=== PATIENT | male | born 1965 | race Caucasian/White ===

== ENCOUNTER 2020-05-30 08:56 | Inpatient (IN) ==
--- NOTE | 2020-04-24 15:15 | PAT Medication Instructions ---
Medication Instructions Date of Service April 24, 2020 Home Medications Sulcrafate 1 g PO QID aspirin [Baby Aspirin] 81 mg PO QAM atorvastatin 80 mg PO PM cetirizine [Zyrtec] 10 mg PO PM dicyclomine 10 mg PO QID divalproex 1,000 mg PO PM folic acid 0.8 mg PO QAM gabapentin 800 mg PO BID hydrochlorothiazide 25 mg PO QAM lisinopril 10 mg PO QAM loperamide [Imodium] 1 mg PO PM melatonin 10 mg PO HS PRN omeprazole 20 mg PO QAM DO NOT take the morning of surgery Sulcrafate 1 g PO QID dicyclomine 10 mg PO QID folic acid 0.8 mg PO QAM hydrochlorothiazide 25 mg PO QAM lisinopril 10 mg PO QAM Take morning of surgery With a small sip of water, OTHERWISE NOTHING TO EAT OR DRINK AFTER MIDNIGHT: aspirin [Baby Aspirin] 81 mg PO QAM gabapentin 800 mg PO BID omeprazole 20 mg PO QAM Take evening before surgery Sulcrafate 1 g PO QID atorvastatin 80 mg PO PM cetirizine [Zyrtec] 10 mg PO PM dicyclomine 10 mg PO QID divalproex 1,000 mg PO PM gabapentin 800 mg PO BID loperamide [Imodium] 1 mg PO PM melatonin 10 mg PO HS PRN Other Notes If you have any questions please call us at [phone] or [phone] or [phone] or [phone]
--- NOTE | 2020-04-26 16:01 | Anesthesiology Consultation ---
Date of Service April 26, 2020 Assessment & Plan (1) Encounter for pre-operative examination: - Per assessment on 04/26: Travel screen negative. No known COVID-19 positive contacts or current COVID-19 related symptoms. Patient had preop COVID testing 04/26 ([facility]). Awaiting results. - ETOH use: 5-6 beers/day at most, denies AM ETOH use. - ASA instructions: okay to continue as directed perioperatively. - Hx CVA: Patient has paperwork from neurologist stating perioperative recommendations as "Maintain mean arterial pressure (MAP) above awake baseline MAP (do not allow any sustained decrease in MAP). General vs. SAB reviewed with patient. OR made aware of possible Awaiting formal surgeon-ordered neurology clearance (Piper Willams) as well as most recent carotid imaging. - Awaiting surgeon-ordered PCP clearance (Dr. Lubin). Chart Review Chart Review: Patient seen in Pre Admission Testing Teaching & Discussion Pre-Anesthesia Teaching/Discussion Notes: Instructed NPO after midnight before surgery,except medications with 15 cc of water. Medication instructions provided according to the PAT guidelines. History Surgery Operation Date: 05/02/20 10:05 Proposed Procedures p Left Anterior Total Hip Arthroplasty - Asaf Calvillo DO Height/Weight Height: 6 ft 2 in Weight: 75.5 kg Allergies Allergy/AdvReac Type Severity Reaction Status Date / Time z pack Allergy Uncoded 04/17/20 13:47 Medications Home Medications Medication Instructions Recorded Confirmed Last Taken Sulcrafate 1 g PO QID 04/17/20 04/17/20 Unknown aspirin [Baby Aspirin] 81 mg PO QAM 04/17/20 04/17/20 Unknown atorvastatin 80 mg PO PM 04/17/20 04/17/20 Unknown cetirizine [Zyrtec] 10 mg PO PM 04/17/20 04/17/20 Unknown dicyclomine 10 mg PO QID 04/17/20 04/17/20 Unknown divalproex 1,000 mg PO PM 04/17/20 04/17/20 Unknown folic acid 0.8 mg PO QAM 04/17/20 04/17/20 Unknown gabapentin 800 mg PO BID 04/17/20 04/17/20 Unknown hydrochlorothiazide 25 mg PO QAM 04/17/20 04/17/20 Unknown lisinopril 10 mg PO QAM 04/17/20 04/17/20 Unknown loperamide [Imodium] 1 mg PO PM 04/17/20 04/17/20 Unknown melatonin 10 mg PO HS PRN 04/17/20 04/17/20 Unknown omeprazole 20 mg PO QAM 04/17/20 04/17/20 Unknown Past Medical History Medical History Carotid artery disease under surveillance by neurology, determined not surgical candidate per patient, recommended medical management CVA (cerebral vascular accident) CVA found 3 locations on imaging (2018), mild residual brain fog Depression GERD (gastroesophageal reflux disease) HTN (hypertension) IBS (irritable bowel syndrome) Migraine Post traumatic stress disorder from back injury Seizure in childhood Exercise / Class Metabolic Activity II 4-5 Yardwork/Stairs/Walk up hill Past Surgical History Surgical History History of colonoscopy History of nasal septoplasty Past Anesthesia History No Hx of Anesthesia Complications and No Family Hx of Anesthesia Complications History of PONV No Hx of PONV and Hx of Motion Sickness Social History Smoking Status: Former smoker Do You Dip or Chew Tobacco: No Smoking End Date: Quit 2 years ago, hx tobacco use x 10-12 years Hx Alcohol Use: Yes Alcohol type: beer alcohol intake frequency: 3 or more drinks per day (5-6 beers/day at most) Hx Substance Use: No substance use type: does not use Review of Systems Patient denies chest pain, shortness of breath, dyspnea on exertion, fever, chills, cough, wheezing, palpitations. Physical Exam Vital Signs VITALS BP 124/65 P 72 TEMP 98.2 SP02 100%RA RESP 16 PHYSICAL Full neck and c-spine range of motion. Full TMJ range of motion. TMD 3 finger breaths Mallampati Score 3 Dentition: missing molars Lungs: clear throughout to auscultation Cardiac: regular rate and rhythm, no murmurs noted Spine: normal Carotid arteries: + right carotid bruit Extremities: no edema Testing Laboratory Results 04/26/20 16:04 04/26/20 16:04 PT 10.7 Seconds (9.0-12.0) 04/26/20 16:04 INR 1.0 (0.9-1.1) 04/26/20 16:04 APTT 24.8 Seconds (21.0-31.0) 04/26/20 16:04 Hemoglobin A1c 5.6 % (4.5-5.6) 04/26/20 16:04 Urine Color Yellow 04/26/20 16:04 Urine Appearance Clear (Clear) 04/26/20 16:04 Urine pH 7.5 (4.5-7.5) 04/26/20 16:04 Ur Specific [place] 1.015 (1.000-1.030) 04/26/20 16:04 Urine Protein Negative (Negative) 04/26/20 16:04 Urine Glucose (UA) Negative (Negative) 04/26/20 16:04 Urine Ketones 1+ (Negative) H 04/26/20 16:04 Urine Nitrite Negative (Negative) 04/26/20 16:04 Ur Leukocyte Esterase Negative (Negative) 04/26/20 16:04 Blood Type B Positive 04/26/20 16:04 Antibody Screen NEGATIVE 04/26/20 16:04 Electrocardiogram Date: 04/26/20 NSR at 70bpm. Rightward axis. unconfirmed report. Chest X-Ray Date: 04/26/20 FINDINGS: PA and lateral chest radiographs are obtained. No prior studies are available for comparison at the time of dictation. The cardiomediastinal silhouette is unremarkable. The lungs and pleural spaces are clear. There is no pneumothorax. The bony thorax appears intact. IMPRESSION: No active disease in the chest.
--- NOTE | 2020-04-26 16:38 | XRay Report ---
TWO VIEW CHEST CLINICAL HISTORY: Preoperative examination. FINDINGS: PA and lateral chest radiographs are obtained. No prior studies are available for compariso n at the time of dictation. The cardiomediastinal silhouette is unremarkable. The lungs and pleural spaces are clear. There is no pneumothorax. The bony thorax appears intact. IMPRESSION: No active disease in the chest. ACT 112: Negative or not required by law. Electronically signed by: Oswaldo Godoy M.D. 04/26/2020 4:37 PM
[2020-04-26 16:40] LABS: Basophils # (auto) 0.03 K/uL (0-0.2); Basophils % (auto) 0.5 %; Eosinophils # (auto) 0.18 K/uL (0-0.5); Eosinophils % (auto) 2.9 %; Hematocrit (blood only) 41.7 % (42-52); Hemoglobin 13.7 g/dL (14.0-18.0); Immature Granulocytes # (auto) 0.01 K/uL (0.00-0.02); Immature Granulocytes % (auto) 0.2 %; Lymphocytes # (auto) 1.78 K/uL (1.2-3.4); Lymphocytes % (auto) 28.3 %; Mean Corpuscular Hemoglobin 33.4 pg (25-34); Mean Corpuscular Hgb Conc 32.9 g/dL (32-36); Mean Corpuscular Volume 101.7 fL (80-100); Monocytes # (auto) 0.52 K/uL (0.11-0.59); Monocytes % (auto) 8.3 %; Neutrophils # (auto) 3.77 K/uL (1.4-6.5); Neutrophils % (auto) 59.8 %; Platelet Count 173 K/uL (130-400); RDW Coefficient of Variation 12.4 % (11.5-14.5); RDW Standard Deviation 46.2 fL (36.4-46.3); White Blood Count 6.29 K/uL (4.8-10.8)
[2020-04-26 16:46] LABS: Appearance Urine Clear (Clear); Bilirubin Urine Negative (Negative); Blood Urine Negative (Negative); Color Urine Yellow; Glucose Urine UA Negative (Negative); Ketones Urine 1+ (Negative); Leukocyte Esterase Urine Negative (Negative); Nitrite Urine Negative (Negative); Protein Urine Negative (Negative); Specific Gravity Urine 1.015 (1.000-1.030); Urobilinogen Urine Negative (Negative); pH Urine 7.5 (4.5-7.5)
[2020-04-26 16:51] LABS: Albumin Level 3.8 gm/dl (3.4-5.0); BUN Creatinine Ratio 8.8 (10-20); Calcium 10.1 mg/dl (8.5-10.1); Creatinine Clr Calc Pharmacy 83.1 ml/min; Est GFR (Non-African American) 75.9; Potassium 3.9 mmol/L (3.5-5.1)
[2020-04-26 16:54] LABS: Partial Thromboplastin Ratio 0.9; Partial Thromboplastin Time 24.8 Seconds (21.0-31.0); Prothrombin Time 10.7 Seconds (9.0-12.0)
[2020-04-27 05:57] LABS: Estimated Average Glucose 114 mg/dl; Hemoglobin A1C 5.6 % (4.5-5.6)
--- NOTE | 2020-04-27 17:38 | Electrocardiogram Report ---
Test Reason : Blood Pressure : / mmHG Vent. Rate : 070 BPM Atrial Rate : 070 BPM P-R Int : 124 ms QRS Dur : 080 ms QT Int : 386 ms P-R-T Axes : 062 091 080 degrees QTc Int : 416 ms Normal sinus rhythm Rightward axis Borderline ECG No previous ECGs available Confirmed by Jermaine Whittaker ([id number]) on 04/27/2020 5:38:07 PM Referred By: Asaf Calvillo Confirmed By:Heriberto Whittaker
--- NOTE | 2020-04-30 19:26 | History & Physical Report ---
Date of Service May 02, 2020 Assessment & Plan (1) Degenerative joint disease of left hip: I have indicated the patient for left anterior total hip replacement. The risks, benefits and complications of surgery were explained to the patient which include but not limited to infection, acute blood loss, DVT/PE, injury to nerves, vessels, bone, soft tissue, arthrofibrosis, chronic pain, failure of the prosthesis, hip dislocation, leg length discrepancy, need for additional surgery, cardiac and pulmonary events and . The patient wished to proceed with surgery and informed consent was obtained at this time. We will plan for 81mg ASA BID post-operatively for DVT prophylaxis. Upon discharge the patient will be discharged home with home health services. Appropriate clearances by PCP, neurology were obtained. History of Present Illness Chief Complaint: Left hip pain/DJD/AVN Primary Care Provider: Kamar Lubin MD The patient is a 54 year old male who presents with complaints of severe left hip pain and DJD. The patient has failed outpatient conservative treatments to this point which included NSAIDs, home exercise/walking program. Patient declined further conservative treatments included IA corticosteroid injection. The patient's pain and limited function have progressed to the point where they severely hinder their activities of daily living and they no longer tolerate exercise programs. They are requesting to proceed with total hip replacement surgery. Allergies Allergy/AdvReac Type Severity Reaction Status Date / Time azithromycin Allergy Unknown Verified 04/29/20 18:53 Home Medications Home Medications Medication Instructions Recorded Confirmed Type Sulcrafate 1 g PO QID 04/17/20 04/17/20 History aspirin [Baby Aspirin] 81 mg PO QAM 04/17/20 04/17/20 History atorvastatin 80 mg PO PM 04/17/20 04/17/20 History cetirizine [Zyrtec] 10 mg PO PM 04/17/20 04/17/20 History dicyclomine 10 mg PO QID 04/17/20 04/17/20 History divalproex 1,000 mg PO PM 04/17/20 04/17/20 History folic acid 0.8 mg PO QAM 04/17/20 04/17/20 History gabapentin 800 mg PO BID 04/17/20 04/17/20 History hydrochlorothiazide 25 mg PO QAM 04/17/20 04/17/20 History lisinopril 10 mg PO QAM 04/17/20 04/17/20 History loperamide [Imodium] 1 mg PO PM 04/17/20 04/17/20 History melatonin 10 mg PO HS PRN 04/17/20 04/17/20 History omeprazole 20 mg PO QAM 04/17/20 04/17/20 History zonisamide 25 mg PO HS 04/27/20 04/27/20 History Past Med/Surg History Medical History Carotid artery disease under surveillance by neurology, determined not surgical candidate per patient, recommended medical management CVA (cerebral vascular accident) CVA found 3 locations on imaging (2018), mild residual brain fog Depression GERD (gastroesophageal reflux disease) HTN (hypertension) IBS (irritable bowel syndrome) Migraine Post traumatic stress disorder from back injury Seizure in childhood Surgical History History of colonoscopy History of nasal septoplasty Social History Smoking Status: Former smoker Smoking End Date: Quit 2 years ago, hx tobacco use x 10-12 years; Second Hand Exposure: No; Do You Dip or Chew Tobacco: No; Hx Alcohol Use: Yes Alcohol type: beer Hx Substance Use: No Preferred Language: Kyrgyz Communication Ability: Effective Beliefs That Will Affect Care: None Current Living Situation: Alone Feels Safe at Home: Yes Safety Concerns: Feels Safe At This Time Assistive Devices: None Review of Systems Review of Systems: All systems reviewed & are unremarkable except as noted in HPI & below Constitutional: as per Subjective / HPI Physical Exam Physical Exam: LLE NVSI +EHL/FHL/TA/GS SILT grossly, +2 DP pulse, compartments soft NT, limited painful ROM of the hip, antalgic gait. Constitutional: WD/WN, vitals as above Eyes: PERRL, conjunctivae normal, anicteric sclerae ENMT: external ear and nose normal, oropharynx normal Neck: trachea midline, no thyromegaly Respiratory: normal respiratory effort, lungs clear to auscultation Cardiovascular: RRR, no murmur, no edema Gastrointestinal (Abdomen): normal bowel sounds, soft, nontender, no hepatosplenomegaly Musculoskeletal: no cyanosis or clubbing, extremities motor strength 5/5 Skin: no rashes, warm and dry Neurologic: patellar DTR's 2+ bilat, sensation intact Psychiatric: A+Ox3, euthymic affect Lymphatic: no cervical or axillary lymphadenopathy Results & Data Results & Data ([facility]) Diagnostic Findings Multiple views of the hip demonstrates severe AVN and DJD involving the femoral head. +osteophytes, +sclerosis and cortical irregularity. MRI of the left hip demonstrates severe AVN of the femoral head with cortical collapse. Pre Admission Testing Addendum Laboratory Results 04/26/20 16:04 04/26/20 16:04 PT 10.7 Seconds (9.0-12.0) 04/26/20 16:04 INR 1.0 (0.9-1.1) 04/26/20 16:04 APTT 24.8 Seconds (21.0-31.0) 04/26/20 16:04 Hemoglobin A1c 5.6 % (4.5-5.6) 04/26/20 16:04 Urine Color Yellow 04/26/20 16:04 Urine Appearance Clear (Clear) 04/26/20 16:04 Urine pH 7.5 (4.5-7.5) 04/26/20 16:04 Ur Specific [place] 1.015 (1.000-1.030) 04/26/20 16:04 Urine Protein Negative (Negative) 04/26/20 16:04 Urine Glucose (UA) Negative (Negative) 04/26/20 16:04 Urine Ketones 1+ (Negative) H 04/26/20 16:04 Urine Nitrite Negative (Negative) 04/26/20 16:04 Ur Leukocyte Esterase Negative (Negative) 04/26/20 16:04 Blood Type B Positive 04/26/20 16:04 Antibody Screen NEGATIVE 04/26/20 16:04 04/26/20 16:04 Urine Culture - Final Urine,Clean Catch No growth - less than 1,000 colonies/mL.
[~2020-05-30 08:56] MED LIST: ACETAMINOPHEN 500 MG TAB PO SCH; BUPIVACAINE 0.5 % 5 MG/1 ML PF 10ML VIAL ONE; CeleBREX 200 MG CAP PO SCH; FAMOTIDINE 20 MG TAB PO SCH; GABAPENTIN 900 MG DOSE PO SCH; LR 500ML BOLUS, THEN 15ML/HR IV SCH; ROPIVACAINE 0.5% HCL/PF 150 MG, BUPIVACAINE 0.5% MPF 30 ML, EPINEPHrine 30MG/30ML (OR U... INFIL SCH; TRANEXAMIC ACID 1,000 MG **IV Intra-op IV SCH; TRANEXAMIC ACID 1,000 MG **IV Pre-op IV SCH; ceFAZolin 1000MG 1,000 MG/7.5 ML SYR IV SCH; dexAMETHasone 4 MG TAB PO SCH
[2020-05-30] MEDS: LR 500ML BOLUS, THEN 15ML/HR IV SCH ×2 (09:50→11:44)
[2020-05-30] MEDS ORDERED: fentaNYL citrate 100 MCG/2 ML VIAL ONE (11:12)
[2020-05-30] MEDS ORDERED: MIDAZOLAM HCL 1 MG/ML 2ML VIAL ONE (11:12)
[2020-05-30] MEDS ORDERED: fentaNYL citrate 100 MCG/2 ML VIAL IV PRN (11:58)
[2020-05-30] MEDS ORDERED: ONDANSETRON INJ 2 MG/ML 2 ML VIAL IV PRN ×2 (11:58→16:00)
[2020-05-30] MEDS ORDERED: ATROPINE SULFATE 0.1 MG/ML 10ML SYR IV PRN (11:58)
[2020-05-30] MEDS ORDERED: ePHEDrine sulfate 50 MG/ML AMP IV PRN (11:58)
--- NOTE | 2020-05-30 12:20 | History & Physical Bridge Note ---
Date of Service May 30, 2020 History & Physical Bridge Note I have examined the patient, reviewed the History & Physical and in the interval since the performance of the History & Physical I have noted the following changes of clinical significance: no changes noted
[2020-05-30] MEDS ORDERED: ORTHO JOINT ANESTHETIC ONE (12:29)
[2020-05-30] MEDS ORDERED: BACITRACIN INJ 50,000 UNIT VIAL ONE (12:29)
--- NOTE | 2020-05-30 14:12 | Post Operative Brief Note ---
Immediate Post Op Note v1 Date of Surgery May 30, 2020 Pre & Post Diagnosis Operation Date: 05/30/20 11:15 Pre-Op Diagnosis: Osteorathritis, Left Hip Post-Op Diagnosis: Osteorathritis, Left Hip I identified the patient and participated in the time-out.: Yes Procedure Operation Date: 05/30/20 11:15 Actual Procedures p Left Anterior Total Hip Arthroplasty, Uncemented(Left) - Asaf Calvillo DO Surgeon Asaf Calvillo DO Automatic Door Mechanic Tucker Virgen Estimated Blood Loss 170 Findings Consistent with Post-Op Diagnosis Fluids 2000 cc LR Specimens femoral head Anesthesia Type Spinal MAC Complications none Disposition Disposition: Recovery Room Overlapping Procedure I was present for: the critical portions of procedure. I was immediately available: during the entire case. Back up surgeon: was not required during procedure.
--- NOTE | 2020-05-30 14:16 | Operative Report ---
Post Operative Report Pre & Post Diagnosis Operation Date: 05/30/20 11:15 Pre-Op Diagnosis: Osteorathritis, Left Hip Post-Op Diagnosis: Osteorathritis, Left Hip I identified the patient and participated in the time-out.: Yes Procedure Operation Date: 05/30/20 11:15 Actual Procedures p Left Anterior Total Hip Arthroplasty, Uncemented(Left) - Asaf Calvillo DO Surgeon Asaf Calvillo DO Script Supervisor Tucker Virgen Estimated Blood Loss 170 Findings Consistent with Post-Op Diagnosis Fluids 2000 cc LR Specimens femoral head Anesthesia Type Spinal MAC Complications none Disposition Disposition: Recovery Room Indications The patient is a 54-year-old male who presents with severe progressive left hip DJD AVN who has failed outpatient conservative treatments. I indicated the patient for a anterior total hip replacement and the risks and benefits were explained in detail which include but not limited to infection, bleeding, blood clot, damage to surrounding bone, nerves, vessels, soft tissue, hip dislocation, failure of the prosthesis, leg length discrepancy, need for additional surgery and . The patient agreed to proceed with replacement of the hip and informed consent was obtained. Appropriate clearances were obtained. Description of Procedure COMPONENTS USED: [employer] hip system: Acetabulum size 54, femur size 9 high offset, femoral head 36+4, liner 54x36, acetabular screw 25 mm x 1. DESCRIPTION OF PROCEDURE: Following satisfactory spinal anesthesia, the patient was placed supine on the OR table. The right leg was placed in the well leg bean and the left leg in the traction device. The left leg was prepared with ChloraPrep and draped sterilely. A surgical timeout was performed, patient identified and site kendall verified. Appropriate antibiotics were given. A standard anterior approach in the interval between the sartorius and tensor muscles was performed. Dissection was carried down through subcutaneous tissues. Electrocautery was utilized for hemostasis. Circumflex femoral vessels were identified, tied and ligated. The anterior capsular fat pad was removed and the capsulotomy was performed revealing the arthritic femoral neck and head. A femoral neck cut was made with reciprocating saw and the bone fragments removed. The acetabular self-retraining retractor was placed. Acetabular reaming was completed under fluoroscopic guidance, a 54 shell was impacted into an anatomic position and secured with a dome screw. Local anesthetic was placed and following irrigation, the polyethylene liner was placed. The femur was placed into position of external rotation, extension and adduction. Femoral canal was prepared up to the size 9 high offset. Trial r eduction with a 36+4 neck length head showed good soft tissue tension, leg lengths restored, and good fit and fill of the proximal canal using fluoroscopic landmarks. The hip was dislocated. The trial component was removed. The final implant was placed. The hip was irrigated with sterile saline solution and reduced. A Betadine soak was performed. After 3 minutes, the hip was once more irrigated with copious sterile saline solution with bacitracin. Michaela-incisional soft tissue was injected utilizing [place] [employer] which includes a combination of Ropivicaine 0.5% 150mg, Bupivicaine 0.5%/Epinephrine 1:200,000 30ml, Toradol 30mg, Dexamethasone 4mg, Ketamine 10mg, Clonidine 100mcg and NSS 30ml solution. The capsule was then closed with 1-0 Vicryl interrupted figure of eight sutures. The fascia was closed with a running suture of #1 Vicryl, the subcutaneous tissues with 2-0 Vicryl and the skin with a running subcuticular stitch of 3-0 V-Loc. Dermabond prineo and a dry dressing were applied. The patient tolerated the procedure well and was transported to PACU in stable condition. Due to the complex nature of the procedure, the entire surgery was performed with the operational assistance of Tucker virgen PA-C. The clinic office assistant, under direct supervision, was involved in the actual performance of all aspects of the surgical procedure including patient positioning, hemostasis, tissue retraction, instrument management and wound closure. I attest to the content of the Intraoperative Record and any orders documented therein. Any exceptions are noted below.
[2020-05-30] MEDS ORDERED: LIDOCAINE HCL 2% 2 ML VIAL/AMP(20MG/ML) INFIL ONE (14:17)
[2020-05-30] MEDS ORDERED: PROPOFOL IV EMULSION 10 MG/ML 20 ML VIAL IV ONE (14:17)
--- NOTE | 2020-05-30 14:23 | Fluoroscopy Report ---
FL hip LT 1V CLINICAL HISTORY: LEFT ANTERIOR HIP COMPARISON STUDY: None. FLUOROSCOPY TIME: 36 seconds. FLUOROSCOPIC IMAGES: 2 FINDINGS: Fluoroscopy was provided during total left hip arthroplasty. Hardware is intact. No fractur e is identified by fluoroscopy. Acetabular screw is noted. IMPRESSION: Fluoroscopy provided during total left hip arthroplasty. ACT 112: Negative or not required by law. Electronically signed by: Jamie Cervantes M.D. 05/30/2020 2:21 PM
--- NOTE | 2020-05-30 14:28 | Anesthesiology Progress Note ---
Date of Service May 30, 2020 Anesthesia Post Procedure Vital Signs Vital Signs: Temp Pulse Resp BP Pulse Ox 05/30/20 10:42 36.6 C 59 L 99 H 136/85 100 05/30/20 09:26 36.6 C 65 16 140/77 100 Pain Intensity Left Hip: Pain Intensity: 5 Transfer of Care Handoff Completed per policy Notes Mental Status: alert / awake / arousable Patient Amnestic to Procedure: Yes Nausea / Vomiting: adequately controlled Pain: adequately controlled Airway Patency, RR, SpO2: stable & adequate BP & HR: stable & adequate Hydration State: stable & adequate Anesthetic Complications: no major complications apparent
--- NOTE | 2020-05-30 15:03 | Anesthesiology Progress Note ---
Date of Service May 30, 2020 Anesthesia Post Procedure Vital Signs Vital Signs: Temp Pulse Pulse Resp BP Pulse Ox 05/30/20 15:00 70 20 108/69 99 05/30/20 14:50 36.7 C 68 20 106/68 100 05/30/20 14:40 77 17 110/71 99 05/30/20 14:30 36.5 C 80 14 118/72 98 05/30/20 10:42 36.6 C 59 L 99 H 136/85 100 05/30/20 09:26 36.6 C 65 16 140/77 100 Pain Intensity Left Hip: Pain Intensity: 0 Transfer of Care Handoff Completed per policy Notes Mental Status: alert / awake / arousable Patient Amnestic to Procedure: Yes Nausea / Vomiting: adequately controlled Pain: adequately controlled Airway Patency, RR, SpO2: stable & adequate BP & HR: stable & adequate Hydration State: stable & adequate Neuraxial Anesthesia: was administered and sensory block is resolving Anesthetic Complications: no major complications apparent and Pt Satisfied with anesthetic care
--- NOTE | 2020-05-30 15:06 | XRay Report ---
XR hip 1V LT w pelvis HISTORY: 54 years-old Male IN PACU - A/P PELVIS and LATERAL HIP left hip total joint arthroplasty COMPARISON: Fluoroscopic images of the left hip same day TECHNIQUE: AP view of the pelvis with crosstable lateral view of the left hip FINDINGS: Left hip total joint arthroplasty demonstrates satisfactory alignment. No acute fracture or retained foreign body. Expected postsurgical soft tissue swelling and deep tissue air surrounding the left hip . Mild right hip osteoarthritis. IMPRESSION: Left hip total joint arthroplasty with expected postoperative changes. ACT 112: Negative or not required by law. The above report was generated using voice recognition software. It may contain grammatical, syntax o r spelling errors. Electronically signed by: Jacob Church M.D. 05/30/2020 3:05 PM
[2020-05-30] MEDS ORDERED: bisacodyL 10 MG SUPP PR PRN (16:00)
[2020-05-30] MEDS ORDERED: HYDROmorphone INJ 0.5 MG/0.5 ML SYR IV PRN (16:00)
[2020-05-30] MEDS ORDERED: diphenhydrAMINE Capsule 25 MG CAP PO PRN (16:00)
[2020-05-30] MEDS ORDERED: METOCLOPRAMIDE HCL INJ 5 MG/ML 2 ML VIAL IV PRN (16:00)
[2020-05-30] MEDS ORDERED: MAGNESIUM HYDROXIDE SUSP 30 ML UDC PO PRN (16:00)
[2020-05-30] MEDS ORDERED: NALOXONE HCL 0.4 MG/1 ML VIAL/CARP IV PRN (16:00)
[2020-05-30] MEDS ORDERED: MELATONIN 3 MG TAB PO PRN (16:07)
--- NOTE | 2020-05-30 16:38 | Orthopedic Progress Note ---
Date of Service May 30, 2020 Assessment & Plan (1) Degenerative joint disease of left hip: s/p Left anterior total hip athroplasty -ancef x 24 -DVT ppx: SCDs, TEDs, ASA BID -WBAT LLE -PT/OT -PO XR demonstrates a well aligned well fixed total hip prothesis. -a.m. labs -DC planning Admission and Anticipated Discharge Date Admission Date: May 30, 2020 Subjective Post Operative Progress Note Patient seen in PACU, comfortable, denies complaints, pain well controlled, no acute issues. Still feeling effects of spinal anesthesia. Review of Systems Review of Systems: All systems reviewed & are unremarkable except as noted in HPI & below Constitutional: as per Subjective / HPI Physical Exam Physical Exam: Physical exam left lower extremity limited secondary to spinal anteshsia, +2 DP pulse, compartments soft, NT, dressing CDI Constitutional: WD/WN, vitals as above Results & Data ([facility]) Vital Signs (Past 12 Hours) Vital Signs Temp Pulse Pulse Resp BP Pulse Ox 05/30/20 16:05 53 L 15 120/81 100 05/30/20 15:42 36.4 C L 63 15 111/73 98 05/30/20 15:30 61 12 104/62 98 05/30/20 15:15 62 13 100/66 96 05/30/20 15:00 70 20 108/69 99 05/30/20 14:50 36.7 C 68 20 106/68 100 05/30/20 14:40 77 17 110/71 99 05/30/20 14:30 36.5 C 80 14 118/72 98 05/30/20 10:42 36.6 C 59 L 99 H 136/85 100 05/30/20 09:26 36.6 C 65 16 140/77 100
[2020-05-30] MEDS ORDERED: Nursing to Pharmacy Communication SCH (18:45)
[2020-05-30] MEDS: SODIUM CHLORIDE 0.9% 1000ML 1,000 ML IV SCH (18:53)
[2020-05-30] MEDS: SUCRALFATE 1 GM TAB PO SCH ×2 (18:53→22:35)
[2020-05-30] MEDS: KETOROLAC TROMETHAMINE 15 MG/ML VIAL IV SCH ×2 (18:53→23:03)
[2020-05-30] MEDS ORDERED: SENNA 8.6 MG TAB PO SCH (21:00)
[2020-05-30] MEDS ORDERED: DIVALPROEX EXTENDED RELEASE 500 MG TAB PO SCH (21:00)
[2020-05-30] MEDS ORDERED: ATORVASTATIN 40 MG TAB PO SCH (21:00)
[2020-05-30] MEDS ORDERED: LOPERAMIDE HCL 2 MG CAP PO SCH (21:00)
[2020-05-30] MEDS: ceFAZolin 2000MG 2,000 MG/15 ML SYR IV SCH (21:25)
[2020-05-30] MEDS: DOCUSATE SODIUM 100 MG CAP PO SCH (21:26)
[2020-05-30] MEDS: GABAPENTIN 800 MG TAB PO SCH (22:36)
[2020-05-30] MEDS: ACETAMINOPHEN 500 MG TAB PO SCH (22:37)
[2020-05-30] MEDS: oxyCODONE HCL IR 5 MG TAB (IMMEDIATE RELEASE) PO PRN (23:46)
[2020-05-31] MEDS: oxyCODONE HCL IR 5 MG TAB (IMMEDIATE RELEASE) PO PRN ×2 (03:43→09:45)
[2020-05-31] MEDS: ceFAZolin 2000MG 2,000 MG/15 ML SYR IV SCH (03:43)
[2020-05-31] MEDS: SODIUM CHLORIDE 0.9% 1000ML 1,000 ML IV SCH (04:38)
[2020-05-31] MEDS: KETOROLAC TROMETHAMINE 15 MG/ML VIAL IV SCH ×2 (06:08→11:16)
[2020-05-31] MEDS: ACETAMINOPHEN 500 MG TAB PO SCH ×2 (06:08→13:45)
[2020-05-31 06:50] LABS: BUN Creatinine Ratio 11.2 (10-20); Calcium 8.3 mg/dl (8.5-10.1); Creatinine Clr Calc Pharmacy 78.2 ml/min; Est GFR (African American) 81.7; Est GFR (Non-African American) 70.5; Potassium 4.5 mmol/L (3.5-5.1)
[2020-05-31 07:21] LABS: Hematocrit (blood only) 31.8 % (42-52); Hemoglobin 10.6 g/dL (14.0-18.0); Mean Corpuscular Hemoglobin 33.8 pg (25-34); Mean Corpuscular Hgb Conc 33.3 g/dL (32-36); Mean Corpuscular Volume 101.3 fL (80-100); Mean Platelet Volume 12.2 fL (7.4-10.4); Platelet Count 117 K/uL (130-400); RDW Standard Deviation 44.1 fL (36.4-46.3); Red Blood Count 3.14 M/uL (4.7-6.1); White Blood Count 8.63 K/uL (4.8-10.8)
[2020-05-31 07:22] LABS: Echinocytes 1+; Immature Granulocytes # (auto) 0.01 K/uL (0.00-0.02); Immature Granulocytes % (auto) 0.1 %; Lymphocytes # (auto) 0.59 K/uL (1.2-3.4); Lymphocytes % (auto) 6.8 %; Monocytes # (auto) 0.58 K/uL (0.11-0.59); Monocytes % (auto) 6.7 %; Neutrophils # (auto) 7.45 K/uL (1.4-6.5); Neutrophils % (auto) 86.4 %; Platelet Estimate Decreased (Normal)
[2020-05-31] MEDS: GABAPENTIN 800 MG TAB PO SCH (08:27)
[2020-05-31] MEDS ORDERED: lisinopril 10 MG TAB PO SCH (09:00)
[2020-05-31] MEDS ORDERED: FOLIC ACID 400 MCG TAB PO SCH (09:00)
[2020-05-31] MEDS ORDERED: hydroCHLOROthiazide 25 MG TAB PO SCH (09:00)
[2020-05-31] MEDS ORDERED: ASPIRIN 81 MG ECTAB PO SCH (09:00)
[2020-05-31] MEDS ORDERED: PANTOprazole 40 MG TAB PO SCH (09:00)
[2020-05-31] MEDS ORDERED: MULTIVITAMIN TAB PO SCH (09:00)
[2020-05-31] MEDS: SUCRALFATE 1 GM TAB PO SCH ×2 (09:44→11:12)
[2020-05-31] MEDS: DOCUSATE SODIUM 100 MG CAP PO SCH (09:45)
--- NOTE | 2020-05-31 10:23 | Orthopedic Progress Note ---
Date of Service May 31, 2020 Assessment & Plan (1) Degenerative joint disease of left hip: s/p Left anterior total hip athroplasty -ancef x 24 -DVT ppx: SCDs, TEDs, ASA BID -WBAT LLE -PT/OT -PO XR demonstrates a well aligned well fixed total hip prothesis. -a.m. labs - as above, hgb 10.6 -DC planning - home with HH Admission and Anticipated Discharge Date Admission Date: May 30, 2020 Subjective Post Operative Progress Note Patient seen sitting up in bed, comfortable, denies complaints, pain well controlled, no acute issues. Denies F/C/N/V/SOB/CP. Review of Systems Review of Systems: All systems reviewed & are unremarkable except as noted in HPI & below Constitutional: as per Subjective / HPI Physical Exam Physical Exam: LLE NVSI +EHL/FHL/TA/GS SILT grossly, +2 DP pulse, compartments soft NT, dressing cdi. Constitutional: WD/WN, vitals as above Results & Data ([facility]) Vital Signs (Past 12 Hours) Vital Signs Temp Pulse Resp BP Pulse Ox 05/31/20 07:35 36.4 C L 61 16 105/72 98 05/31/20 03:30 36.4 C L 59 L 16 105/68 99 05/31/20 01:18 36.3 C L 05/30/20 23:10 67 16 121/74 100 Laboratory Results 05/31/20 05/31/20 Range/Units 05:52 05:52 WBC 8.63 (4.8-10.8) K/uL RBC 3.14 L (4.7-6.1) M/uL Hgb 10.6 L (14.0-18.0) g/dL Hct 31.8 L (42-52) % MCV 101.3 H (80-100) fL MCH 33.8 (25-34) pg MCHC 33.3 (32-36) g/dL RDW Std Deviation 44.1 (36.4-46.3) fL RDW Coeff of Henok 12.0 (11.5-14.5) % Plt Count 117 L (130-400) K/uL MPV 12.2 H (7.4-10.4) fL Immature Gran % (Auto) 0.1 % Neut % (Auto) 86.4 % Lymph % (Auto) 6.8 % Payne % (Auto) 6.7 % Eos % (Auto) 0.0 % Baso % (Auto) 0.0 % Neut # (Auto) 7.45 H (1.4-6.5) K/uL Lymph # (Auto) 0.59 L (1.2-3.4) K/uL Payne # (Auto) 0.58 (0.11-0.59) K/uL Eos # (Auto) 0.00 (0-0.5) K/uL Baso # (Auto) 0.00 (0-0.2) K/uL Immature Gran # (Auto) 0.01 (0.00-0.02) K/uL Platelet Estimate Decreased L (Normal) Echinocytes 1+ Sodium 140 (136-145) mmol/L Potassium 4.5 (3.5-5.1) mmol/L Chloride 109 H (98-107) mmol/L Carbon Dioxide 25 (21-32) mmol/L Anion Gap 6.0 (3-11) BUN 13 (7-18) mg/dl Creatinine 1.18 (0.6-1.4) mg/dl Est Cr Clr Drug Dosing 78.2 ml/min Est GFR ( Amer) 81.7 Est GFR (Non-Af Amer) 70.5 BUN/Creatinine Ratio 11.2 (10-20) Glucose 121 H (70-99) mg/dl Calcium 8.3 L (8.5-10.1) mg/dl
[2020-05-31] MEDS ORDERED: Nursing to Pharmacy Communication SCH (11:45)
[2020-05-31] MEDS ORDERED: LOPERAMIDE HCL 2 MG CAP PO SCH (12:00)
--- NOTE | 2020-05-31 20:34 | Discharge Summary ---
Date of Service May 31, 2020 Admission HPI Per Admitting Provider The patient is a 54 year old male who presents with complaints of severe left hip pain and DJD/AVN. The patient has failed outpatient conservative treatments to this point which included NSAIDs, home exercise/walking program. Patient declined further conservative treatments included IA corticosteroid injection. The patient's pain and limited function have progressed to the point where they severely hinder their activities of daily living and they no longer tolerate exercise programs. They are requesting to proceed with total hip replacement surgery. Principal Diagnosis Left anterior total hip replacement -Left hip DJD/AVN Discharge Exam LLE NVSI +EHL/FHL/TA/GS SILT grossly, +2 DP pulse, compartments soft NT, dressing cdi. Constitutional WD/WN, vitals as above Discharge Data Allergies Allergy/AdvReac Type Severity Reaction Status Date / Time azithromycin Allergy Unknown Verified 05/30/20 09:25 Consultations 05/31/20 08:00 Consult Case Management - Discharge Planning Routine Procedures Performed Operation Date: 05/30/20 11:15 Actual Procedures p Left Anterior Total Hip Arthroplasty, Uncemented(Left) - Asaf Calvillo DO Ordered Studies 05/30/20 11:15 FL fluoroscopy <1hr Routine FL hip LT 1V Routine Hospital Course (1) Degenerative joint disease of left hip: The patient is a 54 -year-old male who presents with long standing history of severe left hip DJD/AVN and failed outpatient conservative treatments. The patient's symptoms have progressed to the point where it has been difficult to perform even normal activities of daily living. I indicated the patient for a left anterior total hip arthroplasty, the risks, benefits and complications of the procedure include but not limited to infection, bleeding, damage to bone, nerves, vessels, surrounding soft tissue, may develop blood clots, loss of function, leg length discrepancy, dislocation, failure of the components, loosening of the components, the need for additional surgery and . The patient wished to proceed with surgery at this time and informed consent was obtained. Hospital Course: On 05/30/20 the patient was taken to the operating room, adequate anesthesia administered and underwent a left anterior total hip arthroplasty. The patient tolerated the procedure well and was taken to the PACU in stable condition. Post-operatively the patient was started on a DVT ppx medication and given appropriate IV antibiotics. Consults were placed to physical therapy, occupational therapy and case management. On POD#1, the patient did well overnight and their pain was well controlled. Labs were drawn and the Hgb was 10.6. The patient progressed well with PT. Dressings were changed at this time and the incision was clean, dry and intact. The patients hospital stay was relatively uneventful and they were deemed stable by the orthopedic team and consultants to be discharged home with HH on 05/31/20. Discharge Instructions: Upon discharge the patient may weight bear as tolerates through their operative extremity. They were instructed to keep the incision clean and dry at all times. The patient may shower but should not submerge the incision, avoid bathing, pools and hot tubs. The patient was given a script for pain medication and should take as instructed. The patient was given a script for DVT ppx 81mg ASA BID and should take as directed. The patient was instructed to not drive or travel for long distances until cleared to do so. If the patient develops any symptoms of fevers, chills, nausea, vomiting, increased redness, swelling, pain or drainage from the surgical site, they should notify the office and/or proceed to the nearest emergency room. The patient should follow up in 10-14 days after surgery for their routine post-operative follow-up appointment and should call the office, to confirm the date and time. s/p Left anterior total hip athroplasty -ancef x 24 -DVT ppx: SCDs, TEDs, ASA BID -WBAT LLE -PT/OT -PO XR demonstrates a well aligned well fixed total hip prothesis. -a.m. labs - as above, hgb 10.6 -DC planning - home with Total Time Total Time Spent Total Time Spent (In Minutes): 30 Discharge Plan Discharge Items Patient Disposition: Home - Home Health Services Reason For Visit: Osteorathritis, Left Hip Discharge Diagnosis: Left anterior total hip replacement -Left hip DJD/AVN Condition on Discharge: Good Activity: Per Instructions section Bathing: Keep incision dry Bathing Comment: No bathing, pools or hot tubs. Sexual Activity: Wait until after follow-up appointment Exercise/Sports: Wait until after follow-up appointment Driving/Machine Use: No Driving. Weightbearing: Full weightbearing Non-emergency contact: Primary Care Provider Call non-emergency contact if: you have any medication questions, your symptoms worsen, your pain is not controlled, your pain is worsening, your pain is unusual for you, your pain is concerning for you, you have a fever, your temperature is above 101, your wound has increased redness, your wound has increased drainage and your wound pain has increased Follow-up/Referrals: Kamar Lubin MD [Primary Care Provider] - Diet: Regular Addtl Attending Provider Instructions: ACTIVITY RECOMMENDATIONS: SELF CARE INSTRUCTIONS AFTER TOTAL HIP REPLACEMENT : Direct Anterior Approach Until the incision and soft tissues around your hip have healed, there is a possibility that the hip prosthesis could dislocate. A. Hip flexion ( Up & Down out of chair or steps ) may be difficult. This is normal. B. Numbness in front of the thigh is also normal for a few weeks. C. Use hand rails when walking on stairs. D. Wear low heeled shoes with non-slip soles. E. Be sure that your floors are free of things that could trip you - throw rugs, electrical cords, small objects. Avoid wet and waxed floors, especially with crutches and canes. F. Try to walk several times a day with rest periods between. G. Continue with all the exercises taught to you in the hospital. Again, make walking a part of your daily routine. SPECIAL CARE INSTRUCTIONS: VERY IMPORTANT TO READ AND REVIEW A. You may still be at risk for phlebitis and blood clots. 1. Wear surgical stockings (MIMI hose) for 2 weeks after surgery to improve circulation and reduce swelling. 2. Take Aspirin 81mg twice daily for 4 weeks or as directed by your doctor. This is your blood thinner. 3. High risk patients may be prescribed a stronger blood thinner if necessary. 4. If you are on Coumadin normally, your family doctor/central sterile supply technician should monitor your blood work. Expect a phone call the day of or the day after bloodwork is drawn to adjust your dosage. B. You must take antibiotics before having dental work, bladder, bowel and other surgery. Your doctor will provide you with a permanent card to carry lorena cribing precautions. C. Call [facility] if you have a fever, redness or swelling around the incision, cloudy drainage from incision, or sudden increase in pain in your hip, not relieved by your regular pain medication. D. Please call the office at if you have any concerns or ques tions about your operation or recovery. * YOU MAY SHOWER, NO TUB BATHS UNTIL CLEARED BY YOUR DOCTOR. - Keep an extra close eye on the top portion of your incision. Be sure to keep clean & dry. * WEAR MIMI HOSE 20 HOURS PER DAY FOR 2 WEEKS. * YOU MAY PROGRESS FROM A WALKER, TO A CANE, TO INDEPENDENT AT YOUR OWN PACE. * MOST PATIENTS WILL HAVE HOME NURSING FOR THERAPY. IF YOU DECIDE TO DO OUTPATIENT PHYSICAL THERAPY, PLEASE SCHEDULE THIS 3 TIMES PER WEEK. * DERMABOND Prineo- This is a mesh tape dressing that is covered with glue. It should remain in place until the incision is properly healed, usually 10-14 days. This dressing is designed to naturally slough off. You may trim the excess mesh tape as it peels off. Incision may be briefly wet in a shower. Dry immediately by blotting with a clean, dry towel. Do not bath or swim until instructed by your doctor. Do not scratch, rub, or pick at the dressing. Do not apply any topical ointments or lotions until dressing is completely removed and/or instructed by your doctor. There may be a small piece of suture material at one end of your incision. Do not pull or trim this. If it is bothersome or catching on clothing, you may cover it with a band-aid. FOLLOW UP VISIT: If appointment is not already scheduled: Please call [facility] to make a follow-up appointment for 2 weeks after your surgery at . Pending Studies at Discharge: No Stand-Alone Forms: My [facility], Opioid Pain Management, Smoking Cessation Medications and DC Order Prescriptions: New celecoxib [Celebrex] 200 mg Capsule 200 mg PO BID PRN (Reason: pain/inflammation) Qty: 28 RF: 0 aspirin 81 mg Tablet,Delayed Release (Dr/Ec) 81 mg PO BID Qty: 56 RF: 0 acetaminophen 500 mg Tablet 1,000 mg PO Q8 PRN (Reason: pain/fevers) Qty: 90 RF: 0 oxycodone 5 mg Tablet 5 mg PO Q6H MDD 4 PRN (Reason: pain) Qty: 30 RF: 0 sennosides [Senokot] 8.6 mg Tablet 17.2 mg PO HS PRN (Reason: constipation) Qty: 28 RF: 0 Continued atorvastatin 80 mg Tablet 80 mg PO PM RF: 0 loperamide 2 mg Capsule 1 mg PO PM RF: 0 cetirizine [Zyrtec] 10 mg Tablet 10 mg PO PM RF: 0 gabapentin 800 mg Tablet 800 mg PO BID RF: 0 lisinopril 10 mg Tablet 10 mg PO QAM RF: 0 divalproex 500 mg Tablet Extended Release 24 Hr 1,000 mg PO PM RF: 0 hydrochlorothiazide 25 mg Tablet 25 mg PO QAM RF: 0 dicyclomine 10 mg Capsule 10 mg PO QID RF: 0 folic acid 800 mcg Tablet 0.8 mg PO QAM RF: 0 omeprazole 20 mg Tablet,Delayed Release (Dr/Ec) 20 mg PO QAM RF: 0 melatonin 10 mg Capsule 10 mg PO HS PRN (Reason: Insomnia) RF: 0 Sulcrafate 1 g PO QID RF: 0 zonisamide 25 mg Capsule 75 mg PO HS RF: 0 Discontinued aspirin [Baby Aspirin] 81 mg Tablet,Chewable 81 mg PO QAM RF: 0 Discharge Orders: Discharge Order (Routine); Ordered 05/31/20 Ordered By: Timmy Monte/Other Patient Handouts: DVT Post Op Prevention Admission Data Admit Date/Time: 05/30/20 14:32 Attending Provider: Asaf Calvillo Admit Provider: Asaf Calvillo Primary Care Provider: Kamar Lubin Other Interventions: Discharge Summary Assessment (RN) Last Done: 05/31/20 13:37
[2020-05-31] MEDS ORDERED: CeleBREX 200 MG CAP PO SCH (21:00)
== END 2020-05-31 14:43 | disposition home health service (06) | DRG 470 ==
LOC: ASU 08:56 → 3E 08:56 → OBSVTOIN 14:32